=== PATIENT | male | born 1935 | race Caucasian/White ===

== ENCOUNTER → 2020-09-17 11:00 | Outpatient (BNVA) | payer MEDICARE, SELFPAY | PROVIDERS: Visit Provider Urology | DX: Z13.89 Encounter for screening for other disorder (principal) | CPT/HCPCS: Q3014 ==

== ENCOUNTER → 2020-10-17 14:26 | Outpatient (BNVA) | payer MEDICARE, SELFPAY | PROVIDERS: Visit Provider Urology | DX: N40.1 Benign prostatic hyperplasia with lower urinary tract symptoms (principal); N13.8 Other obstructive and reflux uropathy; R97.20 Elevated prostate specific antigen [PSA] | CPT/HCPCS: 99212 ==

== ENCOUNTER → 2021-04-24 11:53 | Outpatient (BNVA) | payer MEDICARE, SELFPAY | PROVIDERS: PCP Internal Medicine; Visit Provider Urology | DX: N40.1 Benign prostatic hyperplasia with lower urinary tract symptoms (principal); N13.8 Other obstructive and reflux uropathy; R97.20 Elevated prostate specific antigen [PSA] | CPT/HCPCS: Q3014 ==

== ENCOUNTER → 2022-05-26 14:57 | Outpatient (BNVA) | payer MEDICARE, SELFPAY | PROVIDERS: PCP Internal Medicine; Visit Provider Urology | DX: N40.1 Benign prostatic hyperplasia with lower urinary tract symptoms (principal); R31.9 Hematuria, unspecified; N13.8 Other obstructive and reflux uropathy; R97.20 Elevated prostate specific antigen [PSA] | CPT/HCPCS: 99212 ==

== ENCOUNTER → 2022-10-13 10:55 | Outpatient (BNVA) | payer MEDICARE, SELFPAY | PROVIDERS: PCP Internal Medicine; Visit Provider Urology | DX: R39.15 Urgency of urination (principal) | CPT/HCPCS: 52000; 99212 ==

== ENCOUNTER → 2022-12-10 09:57 | Outpatient (BNVA) | payer MEDICARE, SELFPAY | PROVIDERS: PCP Internal Medicine; Visit Provider Urology | DX: N40.1 Benign prostatic hyperplasia with lower urinary tract symptoms (principal); N13.8 Other obstructive and reflux uropathy; R39.15 Urgency of urination; R35.1 Nocturia | CPT/HCPCS: 51798; 99212 ==

== ENCOUNTER 2023-02-12 10:20 | Outpatient (AMB) | payer MEDICARE, SELFPAY ==
--- NOTE | 2023-02-12 10:37 | A.OFFVIS_ITS ---
Intake Intake Visit Reasons: 2m follow up Intake Note: Patient is present for Follow Up Urology Med: Tolterodine Antibiotic Allergy: None Blood Thinner: None [facility] PVR: 0ML Allergies No Known Allergies Allergy (Verified 02/12/23 10:39) HPI HPI Comments History of Present Illness Details Jose Angel is a pleasant male. He is a patient of Dr. Ellington. He is seen for following urologic conditions - lower urinary tract symptoms with elev ated PSA - urinary urgency Here for assessment PVR 0 Switch blood pressure medications from evening to morning Try Advil p.m. Bladder diary for 3 days to determine urinary volume at nighttime - May benefit from DDAVP Elevated PSA, lower urinary tract symptoms Underwent laser prostatectomy 2004 Doing well from a urinary perspective Waking only 2 times at night but this is tolerable Family history prostate cancer father at age 90 Laboratories - PSA 05/15 2.4, 05/16 2.3, 04/2020 5.0, 04/17 2.8, 05/19 2.9 Cystoscopy - 09/17 bladder trabeculation grade 3, op en prostate with TURP defect PFSH Medical History History of heart attack HTN (hypertension) Hyperlipidemia Thyroid disease Surgical History History of surgery Review of Systems Const Denies chills and Denies fever(s) Card Reports no additional complaints and Denies syncope Resp Denies cough GI Denies abdominal pain and Denies heartburn Reports as per HPI and Denies change in libido Neuro Denies syncope Psych Denies change in libido Endo Denies change in libido Physical Exam Const General: cooperative, healthy appearing, comfortable and no acute distress Orientation/consciousness: patient oriented x3 HEENT Face and sinus: Yes normal facial exam Mouth: moist mucous membranes Neck Neck: Yes normal visual inspection, Yes full ROM and Yes trachea midline Chest Chest palpation & inspection: normal inspection of the chest Resp Effort & Inspection: normal respiratory effort, able to speak in complete sentences and no respiratory distress GI Inspection: Yes normal to inspection Back/Spine/Pelvis Cervical Spine: normal cervical lordosis Thoracic/Lumbar Spine: thoracic and lumbar spine normal to inspection Skin General skin exam: no rashes or lesions noted Neuro General: patient oriented x3, gait normal, tone normal and moves all extremities Extrem General: Yes normal to inspection and Yes capillary refill normal Office Procedures Post Void Residual Post Residual Void Post Void Residual (PVR): 0 50306-Unab Void Residual by ultrasound Assessment & Plan Assessment & Plan (1) Nocturia more than twice per night: Code(s): R35.1 - Nocturia (2) Urinary urgency: Code(s): R39.15 - Urgency of urination Plan PVR after adjustment Orders: Orders AMB Post Void Residual by ultrasound 02/12/23 N40.1 - Benign prostatic hyperplasia with lower urinary tract symptoms, N13.8 - Other obstructive and reflux uropathy AMB Urinalysis Automated 02/12/23 Z13.9 - Encounter for screening, unspecified Patient Instructions: Imaging studies, laboratory and physical exam results were discussed and reviewed in detail. No major barriers to patient understanding were identified. An opportunity to ask questions regarding the treatment plan was provided. All questions were answered. The patient expressed understanding and agreement with the above treatment plan. The patient is aware they should contact our office by phone for worsening of their current condition or the appearance of new urologic symptoms. Compliance is encouraged with any medications and followup testing that is ordered. It is a privilege to participate in the urologic care of your patient. If you have any questions or concerns regarding treatment for the above conditions, or other urologic issues, please do not hesitate to contact me. The office telephone contact is [phone]. This note is constructed using voice recognition software. While every effort has been made to ensure accuracy lasting floorworker errors may have been included. Yours sincerely, Dr Alex Ibanez MD, SEL[facility] - Urology Providers of Expert, Compassionate Care for the Genitourinary System Coding Level of Care Code Est Pt Level 3 (43216) Diagnoses Nocturia more than twice per night R35.1 Urinary urgency R39.15 CPT Codes Post Residual Void - PVR CPT Code: 48190-Sicr Void Residual by ultrasound ([id number])
== END 2023-02-12 11:41 | disposition home or self-care (01) ==
LOC: HO.HUSH 10:20
PROVIDERS: PCP Internal Medicine; Visit Provider Urology
DX: R35.1 Nocturia (principal); R39.15 Urgency of urination
CPT/HCPCS: 99213

== ENCOUNTER → 2023-02-12 10:20 | Outpatient (BNVA) | payer MEDICARE, SELFPAY | PROVIDERS: PCP Internal Medicine; Visit Provider Urology | DX: R35.1 Nocturia (principal); R39.15 Urgency of urination | CPT/HCPCS: 51798; 99212 ==

== ENCOUNTER 2023-05-27 10:19 | Outpatient (AMB) | payer MEDICARE, SELFPAY ==
--- NOTE | 2023-05-27 10:22 | A.OFFVIS_ITS ---
Intake Intake Visit Reasons: 3 month Intake Note: Patient is Present for Telephone Follow Up Urology Med: Tolterodine, Antibiotic Allergy: none Blood Thinner: None Allergies No Known Allergies Allergy (Verified 05/27/23 10:24) Medication List - Last Reconciled 05/27/23 by Alex Ibanez MD atorvastatin 80 mg PO DAILY levothyroxine 112 mcg PO DAILY lisinopril 20 mg PO DAILY metoprolol tartrate 12.5 mg PO BID mupirocin 2% topical BID tolterodine ER 2 mg PO DAILY 30 days triamcinolone acetonide 0.1% appl topical HPI HPI Comments History of Present Illness Details Jose Angel is a pleasant male. He is a patient of Dr. Ellington. He is seen for following urologic conditions - lower urinary tract symptoms with elev ated PSA - urinary urgency Telemedicine Evaluation 15 min Consultation [employer] Major Video attempted Switch blood pressure medications from evening to morning Most helpful eating before 7pm, restrict intake after Afternoon legs higher than heart and compression socks - gave 3hr stretch Will try DDAVP for 1 month Elevated PSA, lower urinary tract symptoms Underwent laser prostatectomy 2004 Doing well from a urinary perspective Waking only 2 times at night but this is tolerable Family history prostate cancer father at age 90 Laboratories - PSA 05/15 2.4, 05/16 2.3, 04/2020 5.0, 04/17 2.8, 05/19 2.9 Cystoscopy - 09/17 bladder trabeculation grade 3, op en prostate with TURP defect PFSH Medical History History of heart attack Thyroid disease Hyperlipidemia HTN (hypertension) Surgical History History of surgery Review of Systems Const All systems reviewed & are unremarkable except as noted in HPI and below Reports no additional complaints Resp Reports no additional complaints GI Reports no additional complaints Reports as per HPI Musc Reports no additional complaints Physical Exam Telemedicine evaluation Appropriate responses Regular breathing rate and rhythm HEENT Head: Yes normal to inspection Ears: hearing grossly normal bilaterally Eyes General: appearance normal, both eyes and all related structures Neck Neck: Yes normal visual inspection Chest Chest palpation & inspection: normal inspection of the chest Resp Effort & Inspection: normal respiratory effort and able to speak in complete sentences Assessment & Plan Assessment & Plan (1) Nocturia more than twice per night: Code(s): R35.1 - Nocturia Plan Short-term DDAVP trial Orders: Orders Basic Metabolic Panel 1 Month R35.1 - Nocturia Medications: New desmopressin 0.05 mg (1/2 x 0.1 mg) PO BEDTIME 30 days 15 tabs 0RF R35.1 - Nocturia Patient Instructions: Imaging studies, laboratory and physical exam results were discussed and reviewed in detail. No major barriers to patient understanding were identified. An opportunity to ask questions regarding the treatment plan was provided. All questions were answered. The patient expressed understanding and agreement with the above treatment plan. The patient is aware they should contact our office by phone for worsening of their current condition or the appearance of new urologic symptoms. Compliance is encouraged with any medications and followup testing that is ordered. It is a privilege to participate in the urologic care of your patient. If you have any questions or concerns regarding treatment for the above conditions, or other urologic issues, please do not hesitate to contact me. The office tel ephone contact is [phone]. This note is constructed using voice recognition software. While every effort has been made to ensure accuracy bevel polisher errors may have been included. Yours sincerely, Dr Alex Ibanez MD, SEL[facility] - Urology Providers of Expert, Compassionate Care for the Genitourinary System Telehealth Telehealth Location of provider rendering services: practice address Location of patient: address on file Patient Identification confirmed using: Name, : Yes Telehealth method: video Patient verbally consented to treatment: Yes Patient verbally consented to billing insurance company: Yes Patient informed of any privacy concerns related to visit: Yes Coding Level of Care Code Tele Est Pt Level 4 (76179) Diagnoses Nocturia more than twice per night R35.1
== END 2023-05-27 11:32 | disposition home or self-care (01) ==
LOC: HO.HUSH 10:19
PROVIDERS: PCP Internal Medicine; Visit Provider Urology
DX: R35.1 Nocturia (principal)
CPT/HCPCS: 99214

== ENCOUNTER → 2023-05-27 10:19 | Outpatient (BNVA) | payer MEDICARE, SELFPAY | PROVIDERS: PCP Internal Medicine; Visit Provider Urology ==

== ENCOUNTER 2023-07-02 10:53 | Outpatient (AMB) | payer MEDICARE, SELFPAY ==
--- NOTE | 2023-07-02 10:54 | MHC.OFFVIS ---
Intake Intake Visit Reasons: 1M BMP/Trial (lab?) Intake Note: Patient is Present for Telephone Follow Up Trial Urology Med:Tolterodine, Desmopressin Antibiotic Allergy:None Blood Thinner: None Allergies No Known Allergies Allergy (Verified 05/27/23 10:24) HPI HPI Comments History of Present Illness Details Jose Angel is a pleasant male. He is a patient of Dr. Ellington. He is seen for following urologic conditions - lower urinary tract symptoms with elevated PSA - urinary urgency Telemedicine Evaluation 15 min Consultation [employer] Major Video attempted Follow-up from DDAVP trial DDAVP for 1 month - less volume of nocturia but still every 2 hr waking Discussed trial of imipramine Prescription given 4-6 week follow-up Switch blood pressure medications from evening to morning Most helpful eating before 7pm, restrict intake after Afternoon legs higher than heart and compression socks - gave 3hr stretch Urinary urgency Failed tolterodine DDAVP for 1 month - less volume of nocturia but still every 2 hr waking Elevated PSA, lower urinary tract symptoms Underwent laser prostatectomy 2004 Doing well from a urinary perspective Family history prostate cancer father at age 90 Laboratories - PSA 05/15 2.4, 05/16 2.3, 04/2020 5.0, 04/17 2.8, 05/19 2.9 Cystoscopy - 09/17 bladder trabeculation grade 3, open prostate with TURP defect PFSH Medical History History of heart attack Thyroid disease Hyperlipidemia HTN (hypertension) Surgical History History of surgery Review of Systems Const All systems reviewed & are unremarkable except as noted in HPI and below Reports no additional complaints Resp Reports no additional complaints GI Reports no additional complaints Reports as per HPI Musc Reports no additional complaints Physical Exam Telemedicine evaluation Appropriate responses Regular breathing rate and rhythm HEENT Head: Yes normal to inspection Ears: hearing grossly normal bilaterally Eyes General: appearance normal, both eyes and all related structures Neck Neck: Yes normal visual inspection Chest Chest palpation & inspection: normal inspection of the chest Resp Effort & Inspection: normal respiratory effort and able to speak in complete sentences Assessment & Plan Assessment & Plan (1) Nocturia more than twice per night: Code(s): R35.1 - Nocturia Plan Trial imipramine Medications: New imipramine HCl 25 mg PO BEDTIME 30 tabs 1RF 30 days R35.1 - Nocturia Discontinued tolterodine ER Discontinued Reason: Patient Completed Course 2 mg PO DAILY 30 days 30 caps 1RF R39.15 - Urgency of urination Patient Instructions: Imaging studies, laboratory and physical exam results were discussed and reviewed in detail. No major barriers to patient understanding were identified. An opportunity to ask questions regarding the treatment plan was provided. All questions were answered. The patient expressed understanding and agreement with the above treatment plan. The patient is aware they should contact our office by phone for worsening of their current condition or the appearance of new urologic symptoms. Compliance is encouraged with any medications and followup testing that is ordered. It is a privilege to participate in the urologic care of your patient. If you have any questions or concerns regarding treatment for the above conditions, or other urologic issues, please do not hesitate to contact me. The office telephone contact is [phone]. This note is constructed using voice recognition software. While every effort has been made to ensure accuracy well flow operator errors may have been included. Yours sincerely, Dr Alex Ibanez MD, S[facility] - Urology Providers of Expert, Compassionate Care for the Genitourinary System Telehealth Telehealth Location of provider rendering services: practice address Location of patient: address on file Patient Identification confirmed using: Name, : Yes Telehealth method: video Patient verbally consented to treatment: Yes Patient verbally consented to billing insurance company: Yes Patient informed of any privacy concerns related to visit: Yes Coding Level of Care Code Tele Est Pt Level 4 (75072) Diagnoses Nocturia more than twice per night R35.1
== END 2023-07-02 11:17 | disposition home or self-care (01) ==
LOC: HO.HUSH 10:53
PROVIDERS: PCP Internal Medicine; Visit Provider Urology
DX: R35.1 Nocturia (principal)
CPT/HCPCS: 99214

== ENCOUNTER → 2023-07-02 10:53 | Outpatient (BNVA) | payer MEDICARE, SELFPAY | PROVIDERS: PCP Internal Medicine; Visit Provider Urology ==

== ENCOUNTER 2023-08-03 08:44 | Outpatient (AMB) | payer MEDICARE, SELFPAY ==
--- NOTE | 2023-08-03 08:48 | A.OFFVIS_ITS ---
Intake Intake Visit Reasons: 4W Med Review(imipramine) Intake Note: Patient is Present for Telephone Follow Up Med Review- Imipramine Urology Med: Imipramine, Antibiotic Allergy: None Blood Thinner: None Allergies No Known Allergies Allergy (Verified 08/03/23 08:49) HPI HPI Comments History of Present Illness Details Jose Angel is a pleasant male. He is a patient of Dr. Ellington. He is seen for following urologic conditions - lower urinary tract symptoms with elev ated PSA - urinary urgency Telemedicine Evaluation 15 min Consultation [employer] Major Video attempted Minimal benefit from imipramine Has noticed that cutting down dairy has helped to to manage urination and his arthritis Follow-up in 4 prostate check Urinary urgency Failed tolterodine DDAVP for 1 month - less volume of nocturia but still every 2 hr waking Imipramine failed Afternoon legs higher than heart and compression socks - gave 3hr stretch Elevated PSA, lower urinary tract symptoms Underwent laser prostatectomy 2004 Doing well from a urinary perspective Family history prostate cancer father at age 90 Laboratories - PSA 05/15 2.4, 05/16 2.3, 04/2020 5.0, 04/17 2.8, 05/19 2.9 Cystoscopy - 09/17 bladder trabeculation grade 3, op en prostate with TURP defect PFSH Medical History History of heart attack Thyroid disease Hyperlipidemia HTN (hypertension) Surgical History History of surgery Review of Systems Const All systems reviewed & are unremarkable except as noted in HPI and below Reports no additional complaints Resp Reports no additional complaints GI Reports no additional complaints Reports as per HPI Musc Reports no additional complaints Physical Exam Telemedicine evaluation Appropriate responses Regular breathing rate and rhythm HEENT Head: Yes normal to inspection Ears: hearing grossly normal bilaterally Eyes General: appearance normal, both eyes and all related structures Neck Neck: Yes normal visual inspection Chest Chest palpation & inspection: normal inspection of the chest Resp Effort & Inspection: normal respiratory effort and able to speak in complete sentences Assessment & Plan Assessment & Plan (1) Nocturia more than twice per night: Code(s): R35.1 - Nocturia (2) Urinary urgency: Code(s): R39.15 - Urgency of urination (3) BPH w urinary obs/LUTS: Code(s): N40.1 - Benign prostatic hyperplasia with lower urinary tract symptoms; N13.8 - Other obstructive and reflux uropathy Plan Follow-up in fall for prostate check Patient Instructions: Imaging studies, laboratory and physical exam results were discussed and reviewed in detail. No major barriers to patient understanding were identified. An opportunity to ask questions regarding the treatment plan was provided. All questions were answered. The patient expressed understanding and agreement with the above treatment plan. The patient is aware they should contact our office by phone for worsening of their current condition or the appearance of new urologic symptoms. Compliance is encouraged with any medications and followup testing that is ordered. It is a privilege to participate in the urologic care of your patient. If you have any questions or concerns regarding treatment for the above conditions, or other urologic issues, please do not hesitate to contact me. The office tel ephone contact is [phone]. This note is constructed using voice recognition software. While every effort has been made to ensure accuracy wire straightening machine operator errors may have been included. Yours sincerely, Dr Alex Ibanez MD, [facility] - Urology Providers of Expert, Compassionate Care for the Genitourinary System Telehealth Telehealth Location of provider rendering services: practice address Location of patient: address on file Patient Identification confirmed using: Name, : Yes Telehealth method: video Patient verbally consented to treatment: Yes Patient verbally consented to billing insurance company: Yes Patient informed of any privacy concerns related to visit: Yes Coding Level of Care Code Tele Est Pt Level 3 (73369) Diagnoses Nocturia more than twice per night R35.1 Urinary urgency R39.15 BPH w urinary obs/LUTS N40.1; N13.8
== END 2023-08-03 09:36 | disposition home or self-care (01) ==
LOC: HO.HUSH 08:44
PROVIDERS: PCP Internal Medicine; Visit Provider Urology
DX: N40.1 Benign prostatic hyperplasia with lower urinary tract symptoms (principal); R35.1 Nocturia; R39.15 Urgency of urination; N13.8 Other obstructive and reflux uropathy
CPT/HCPCS: 99213

== ENCOUNTER → 2023-08-03 08:44 | Outpatient (BNVA) | payer MEDICARE, SELFPAY | PROVIDERS: PCP Internal Medicine; Visit Provider Urology ==

== ENCOUNTER 2024-04-11 11:14 | Outpatient (AMB) | payer MEDICARE, SELFPAY ==
--- NOTE | 2024-04-11 11:16 | A.OFFVIS_ITS ---
Intake Visit Reasons: 7M PVR/PSA/Prostate Check(set) Intake Note: Patient is present for 7m f/u pvr/psa Urology Medication:desmopressin, imipramine Antibiotic Allergy:none Blood Thinner:none today's pvr:0ml's Finishing Supervisor Required: No Allergies No Known Allergies Allergy (Verified 04/11/24 11:18) HPI Comments Details: Jose Angel is a pleasant male. He is a patient of Dr. Ellington. He is seen for following urologic conditions - lower urinary tract symptoms with elevated PSA - urinary urgency PSA 3.3 Discussed maintaining activity with resistance exercises maintain muscle mass He worries about his who is 5 ft 6250 lb. Urinary urgency Failed tolterodine DDAVP for 1 month - less volume of nocturia but still every 2 hr waking Imipramine failed Afternoon legs higher than heart and compression socks - gave 3hr stretch Elevated PSA, lower urinary tract symptoms Underwent laser prostatectomy 2004 Doing well from a urinary perspective Family history prostate cancer father at age 90 Laboratories - PSA 05/15 2.4, 05/16 2.3, 04/2020 5.0, 04/17 2.8, 05/19 2.9, 03/21 3.3 Cystoscopy - 09/17 bladder trabeculation grade 3, open prostate with TURP defect PFSH Medical History History of heart attack Thyroid disease Hyperlipidemia HTN (hypertension) Surgical History History of surgery Review of Systems Const Denies chills and Denies fever(s) Card Reports no additional complaints and Denies syncope Resp Denies cough GI Denies abdominal pain and Denies heartburn Reports as per HPI and Denies change in libido Neuro Denies syncope Psych Denies change in libido Endo Denies change in libido Physical Exam Const General: cooperative, healthy appearing, comfortable and no acute distress Orientation/consciousness: patient oriented x3 HEENT Face and sinus: Yes normal facial exam Mouth: moist mucous membranes Neck Neck: Yes normal visual inspection, Yes full ROM and Yes trachea midline Chest Chest palpation & inspection: normal inspection of the chest Resp Effort & Inspection: normal respiratory effort, able to speak in complete sentences and no respiratory distress GI Inspection: Yes normal to inspection Back/Spine/Pelvis Cervical Spine: normal cervical lordosis Thoracic/Lumbar Spine: thoracic and lumbar spine normal to inspection Skin General skin exam: no rashes or lesions noted Neuro General: patient oriented x3, gait normal, tone normal and moves all extremities Extrem General: Yes normal to inspection and Yes capillary refill normal Office Procedures Post Void Residual Post Residual Void Post Void Residual (PVR): 0 26872-Oatx Void Residual by ultrasound Results AMB Urinalysis, Automated UA Leukoctes 0 Rudi/uL Last Edit by MALIA Dior on 04/11/24 11:32 UA Nitrite Negative Last Edit by MALIA Dior on 04/11/24 11:32 UA Urobilinogen 0.2 mg/dL Last Edit by MALIA Dior on 04/11/24 11:3 2 UA Protein 15 mg/dL Last Edit by MALIA Dior on 04/11/24 11:32 UA pH 6.0 Last Edit by aNncy Pena CCM on 04/11/24 11:32 UA Blood 0 Bony/uL Last Edit by MALIA Dior on 04/11/24 11:32 UA Specific [place] 1.020 Last Edit by Nancy Pena CCM on 04/11/24 11: 32 UA Ketone Negative Last Edit by MALIA Dior on 04/11/24 11:32 UA Bilirubin 0 mg/dL Last Edit by MALIA Dior on 04/11/24 11:32 UA Glucose 0 mg/dL Last Edit by Nancy Pena [facility] on 04/11/24 11:32 Results Reviewed Results Reviewed: Laboratory Last Values Urine pH (Auto) 6.0 04/11/24 11:31 Specific [place] (Auto) 1.020 04/11/24 11:31 Urine Protein (Auto) 15 mg/dL 04/11/24 11:31 Glucose (UA)(Auto) 0 mg/dL 04/11/24 11:31 Urine Ketones (Auto) Negative 04/11/24 11:31 Urine Blood (Auto) 0 Bony/uL 04/11/24 11:31 Urine Nitrite (Auto) Negative 04/11/24 11:31 Urine Bilirubin (Auto) 0 mg/dL 04/11/24 11:31 Urine Urobilinogen (Auto) 0.2 mg/dL 04/11/24 11:31 Leukocyte Esterase (Auto) 0 Rudi/uL 04/11/24 11:31 Assessment & Plan Assessment & Plan (1) Nocturia more than twice per night: Code(s): R35.1 - Nocturia Category: Medical (2) Urinary urgency: Code(s): R39.15 - Urgency of urination Category: Medical Plan Twelve month follow-up PSA Orders: Orders AMB Urinalysis Automated Today Z13.9 - Encounter for screening, unspecified Prostate Specific Antigen 364 Days N13.8 - Other obstructive and reflux uropathy, N40.1 - Benign prostatic hyperplasia with lower urinary tract symptoms Patient Instructions: Imaging studies, laboratory and physical exam results were discussed and reviewed in detail. No major barriers to patient understanding were identified. An opportunity to ask questions regarding the treatment plan was provided. All questions were answered. The patient expressed understanding and agreement with the above treatment plan. The patient is aware they should contact our office by phone for worsening of their current condition or the appearance of new urologic symptoms. Compliance is encouraged with any medications and followup testing that is ordered. It is a privilege to participate in the urologic care of your patient. If you have any questions or concerns regarding treatment for the above conditions, or other urologic issues, please do not hesitate to contact me. The office telephone contact is [phone]. This note is constructed using voice recognition software. While every effort has been made to ensure accuracy earth science laboratory technician errors may have been included. Yours sincerely, Dr Alex Ibanez MD, SEL[facility] [place] - Urology Providers of Expert, Compassionate Care for the Genitourinary System Coding Level of Care Code Est Pt Level 4 (18794) Diagnoses Nocturia more than twice per night R35.1 Urinary urgency R39.15 CPT Codes Post Residual Void - PVR CPT Code: 41686-Thcc Void Residual by ultrasound ([id number])
== END 2024-04-11 11:56 | disposition home or self-care (01) ==
PROVIDERS: PCP Internal Medicine; Visit Provider Urology
DX: R35.1 Nocturia (principal); R39.15 Urgency of urination; Z13.9 Encounter for screening, unspecified
CPT/HCPCS: 99214

== ENCOUNTER → 2024-04-11 11:14 | Outpatient (BNVA) | payer MEDICARE, SELFPAY | PROVIDERS: PCP Internal Medicine; Visit Provider Urology | DX: N40.1 Benign prostatic hyperplasia with lower urinary tract symptoms (principal); N13.8 Other obstructive and reflux uropathy; R97.20 Elevated prostate specific antigen [PSA]; R39.15 Urgency of urination; R35.1 Nocturia; Z80.42 Family history of malignant neoplasm of prostate | CPT/HCPCS: 51798; 81003; 99212 ==

== ENCOUNTER 2025-04-10 09:30 | Outpatient (AMB) | payer MEDICARE, SELFPAY ==
--- NOTE | 2025-04-10 09:31 | MHC.OFFVIS ---
Intake Visit Reasons: 1Y PVR/PSA/Prostate Check(set) Intake Note: patient presents today for: 1yr follow up urology medications: none blood thinners: none labs done 04/04/25: PSA 3.0 today's PVR: 0mls Bond Trader Required: No Accompanied by: Self / Same As Patient Allergies No Known Allergies Allergy (Verified 04/10/25 09:33) HPI Comments Details: Jose Angel is a pleasant male. He is a patient of Dr. Ellington. He is seen for following urologic conditions - lower urinary tract symptoms with elevated PSA - urinary urgency 04/21 3.0 Still waking at night to urinate but has energy during the day Discussed maintaining activity with resistance exercises maintain muscle mass He worries about his who is 5 ft 6 - 250 lb Retired commercial pilot Urinary urgency Failed tolterodine DDAVP for 1 month - less volume of nocturia but still every 2 hr waking Imipramine failed Afternoon legs higher than heart and compression socks - gave 3hr stretch Elevated PSA, lower urinary tract symptoms Underwent laser prostatectomy 2004 Doing well from a urinary perspective Family history prostate cancer father at age 90 Laboratories - PSA 05/15 2.4, 05/16 2.3, 04/2020 5.0, 04/17 2.8, 05/19 2.9, 03/21 3.3, 04/21 3.0 Cystoscopy - 09/17 bladder trabeculation grade 3, open prostate with TURP defect PFSH Medical History History of heart attack Thyroid disease Hyperlipidemia HTN (hypertension) Surgical History History of surgery Review of Systems Const Denies chills and Denies fever(s) Card Reports no additional complaints and Denies syncope Resp Denies cough GI Denies abdominal pain and Denies heartburn Reports as per HPI and Denies change in libido Neuro Denies syncope Psych Denies change in libido Endo Denies change in libido Physical Exam Const General: cooperative, healthy appearing, comfortable and no acute distress Orientation/consciousness: patient oriented x3 HEENT Face and sinus: Yes normal facial exam Mouth: moist mucous membranes Neck Neck: Yes normal visual inspection, Yes full ROM and Yes trachea midline Chest Chest palpation & inspection: normal inspection of the chest Resp Effort & Inspection: normal respiratory effort, able to speak in complete sentences and no respiratory distress GI Inspection: Yes normal to inspection Back/Spine/Pelvis Cervical Spine: normal cervical lordosis Thoracic/Lumbar Spine: thoracic and lumbar spine normal to inspection Skin General skin exam: no rashes or lesions noted Neuro General: patient oriented x3, gait normal, tone normal and moves all extremities Extrem General: Yes normal to inspection and Yes capillary refill normal Office Procedures Post Void Residual Post Residual Void Post Void Residual (PVR): 0 [id number] Void Residual by ultrasound Results AMB Urinalysis, Automated UA Leukoctes 0 Rudi/uL Last Edit by MALIA Maharaj on 04/10/25 09:52 UA Nitrite Last Edit by MALIA Maharaj on 04/10/25 09:52 UA Urobilinogen 0.2 mg/dL Last Edit by MALIA Maharaj on 04/10/25 09:52 UA Protein 0 mg/dL Last Edit by MALIA Maharaj on 04/10/25 09:52 UA pH 6.0 Last Edit by MALIA Maharaj on 04/10/25 09:52 UA Blood 0 Bony/uL Last Edit by MALIA Maharaj on 04/10/25 09:52 UA Specific [place] 1.015 Last Edit by MALIA Maharaj on 04/10/25 09:52 UA Ketone Last Edit by MALIA Maharaj on 04/10/25 09:52 UA Bilirubin 0 mg/dL Last Edit by MALIA Maharaj on 04/10/25 09:52 UA Glucose 0 mg/dL Last Edit by MALIA Maharaj on 04/10/25 09:52 Assessment & Plan Assessment & Plan (1) Elevated PSA: Code(s): R97.20 - Elevated prostate specific antigen [PSA] Category: Medical (2) BPH w urinary obs/LUTS: Code(s): N40.1 - Benign prostatic hyperplasia with lower urinary tract symptoms; N13.8 - Other obstructive and reflux uropathy Category: Medical Plan 12 month follow-up Orders: Orders AMB Post Void Residual by ultrasound Today N13.8 - Other obstructive and reflux uropathy, N40.1 - Benign prostatic hyperplasia with lower urinary tract symptoms AMB Urinalysis Automated Today Z13.9 - Encounter for screening, unspecified Patient Instructions: This note is constructed using voice recognition software. While every effort has been made to ensure accuracy spice grinder errors may have been included. Imaging studies, laboratory and physical exam results were discussed and reviewed in detail. No major barriers to patient understanding were identified. An opportunity to ask questions regarding the treatment plan was provided. All questions were answered. The patient expressed understanding and agreement with the above treatment plan. The patient is aware they should contact our office by phone for worsening of their current condition or the appearance of new urologic symptoms. Compliance is encouraged with any medications and followup testing that is ordered. It is a privilege to participate in the urologic care of your patient. If you have any questions or concerns regarding treatment for the above conditions, or other urologic issues, please do not hesitate to contact me. The office telephone contact is [phone]. Sincerely, Dr Alex Ibanez MD, [facility] - Urology Compassionate Specialist Care for the Genitourinary System Coding Level of Care Code Est Pt Level 4 (22154) Complex EM visit Add On G2211 Diagnoses Elevated PSA R97.20 BPH w urinary obs/LUTS N40.1; N13.8 CPT Codes Post Residual Void - PVR CPT Code: 39463-Pwto Void Residual by ultrasound ([id number])
== END 2025-04-10 10:02 | disposition home or self-care (01) ==
LOC: HO.HUSH 09:31
PROVIDERS: PCP Internal Medicine; Visit Provider Urology
DX: R97.20 Elevated prostate specific antigen [PSA] (principal); N40.1 Benign prostatic hyperplasia with lower urinary tract symptoms; N13.8 Other obstructive and reflux uropathy; Z13.9 Encounter for screening, unspecified
CPT/HCPCS: 99214; G2211

== ENCOUNTER → 2025-04-10 09:30 | Outpatient (BNVA) | payer MEDICARE, SELFPAY | PROVIDERS: PCP Internal Medicine; Visit Provider Urology | DX: N40.1 Benign prostatic hyperplasia with lower urinary tract symptoms (principal); R97.20 Elevated prostate specific antigen [PSA]; N13.8 Other obstructive and reflux uropathy | CPT/HCPCS: 51798; 81003; 99212 ==